=== PATIENT | male | born 1965 | race Caucasian/White ===

== ENCOUNTER 2019-09-22 18:28 | Inpatient (IN) | payer MEDICARE, OTHER ==
[~2019-09-22] VITALS: Ht 182.9 cm; Wt 98.9 kg
--- NOTE | 2019-09-22 18:28 | NUR ---
PT BIBPA C/O INCREASED AGITATION AND PSYCHOSIS. ON 5150 HOLD FOR DTO AND GD. PT IS AAOX4, NOT IN RESPIRATORY DISTRESS, V/S STABLE, KEPT RESTED AND COMFORTABLE. WILL CONTINUE TO MONITOR.
--- NOTE | 2019-09-22 18:39 | NUR ---
SEEN AND EXAMINED BY .
--- NOTE | 2019-09-22 18:50 | NUR ---
URINAL GIVEN BUT UNABLE TO PROVIDE URINE SPECIMEN THIS TIME.
--- NOTE | 2019-09-22 18:58 | NUR ---
ER PHLEB AT BEDSIDE FOR BLOOD DRAW.
[2019-09-22 19:06] LABS: BASOPHILS % (AUTO) 0.5 % (0.0-2.0); EOSINOPHILS % (AUTO) 5.2 % (0.0-6.0); HEMATOCRIT 45 % (39-51); HEMOGLOBIN 14.7 g/dL (13.5-17.5); LYMPHOCYTES # (AUTO) 1.3 /CMM (0.8-4.8); LYMPHOCYTES % (AUTO) 17.9 % (20.0-44.0); MEAN CORPUSCULAR HGB CONC 33 g/dl (31.0-36.0); MEAN CORPUSCULAR VOLUME 91 fL (80-96); MONOCYTES # (AUTO) 0.7 /CMM (0.1-1.30); MONOCYTES % (AUTO) 8.8 % (2.0-12.0); NEUTROPHILS # (AUTO) 5.1 /CMM (1.8-8.9); NEUTROPHILS % (AUTO) 67.6 % (43.0-81.0); PLATELET COUNT (AUTO) 250 /CMM (150-450); RED BLOOD CELL COUNT(AUTO) 4.88 MIL/uL (4.5-6.0); WHITE BLOOD COUNT (AUTO) 7.5 K/uL (4.3-11.0)
[2019-09-22 19:13] LABS: CALCIUM, SERUM 8.4 mg/dL (8.5-10.1); CARBON DIOXIDE 31 mmol/L (21-32); CHLORIDE 105 mmol/L (98-107); GLUCOSE 79 mg/dL (74-106); POTASSIUM 3.7 mmol/L (3.5-5.1); SODIUM SERUM 143 mmol/L (136-145); UREA NITROGEN, BLOOD 19 mg/dL (7-18)
--- NOTE | 2019-09-22 19:17 | NUR ---
urine collected and sent to lab
[2019-09-22 19:19] LABS: ALANINE AMINOTRANSFERASE 18 U/L (12-78); ALBUMIN 3.3 g/dL (3.4-5.0); ALCOHOL, BLOOD < 3 mg/dL (0-0); ALKALINE PHOSPHATASE 66 U/L (46-116); ASPARTATE AMINOTRANSFERASE 17 U/L (15-37); BILIRUBIN,DIRECT 0.1 mg/dL (0.0-0.2); BILIRUBIN,TOTAL 0.5 mg/dL (0.2-1.0); TOTAL PROTEIN, SERUM 6.8 g/dL (6.4-8.2)
[2019-09-22 19:20] LABS: ACETAMINOPHEN < 2 ug/ml (10-30); SALICYLATE < 2.8 mg/dL (2.8-20.0)
[2019-09-22 20:45] LABS: APPEARANCE,URINE HAZY (CLEAR); BILIRUBIN,URINE SMALL (NEGATIVE); BLOOD, URINE Trace-intact Ery/uL (NEGATIVE); COLOR,URINE DARK YELLOW (YELLOW); KETONES,URINE Negative (NEGATIVE); LEUKOCYTE ESTERASE ,URINE Negative (NEGATIVE); NITRITE, URINE Negative (NEGATIVE); PROTEIN,URINE Trace mg/dl (NEGATIVE); UGLUCOSE Negative (NEGATIVE); UROBILINOGEN,URINE 0.2 EU/dL (0.2)
[2019-09-22 20:52] LABS: BACTERIA,URINE Few /HPF (None Seen); SQUAMOUS EPITHELIAL CELL,UR Few /HPF (None Seen); WBC,URINE 0-2 /HPF (0-3)
[2019-09-22 20:53] LABS: HYALINE CASTS, URINE Few /LPF (None Seen); MUCUS,URINE Many /LPF (None Seen)
--- NOTE | 2019-09-22 21:08 | NUR ---
SPOKE WITH NURSING SUP, PT IS GOING TO ROOM 220A.
--- NOTE | 2019-09-22 21:31 | NUR ---
report given to lito anderson for warren; pt will be transported to 2nd floor gps
--- NOTE | 2019-09-22 21:33 | NUR ---
per report, to take patient up last for gps admit
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
[2019-09-22 23:56] VITALS: BP 138/82
[2019-09-23] MEDS ORDERED: TEMAZEPAM 7.5 MG CAPSULE PO PRN
[2019-09-23] MEDS ORDERED: LORAZEPAM 0.5 MG TABLET PO PRN
[2019-09-23] MEDS ORDERED: ACETAMINOPHEN 325 MG TABLET PO PRN
[2019-09-23] MEDS ORDERED: BLOOD SUGAR DIAGNOSTIC 1 EACH STRIP IN ONE
[2019-09-23] MEDS ORDERED: MAGNESIUM HYDROXIDE 30 ML UDC PO PRN
[2019-09-23] MEDS ORDERED: MAG HYDROX/AL HYDROX/SIMETH 30 ML UDC PO PRN
[2019-09-23] MEDS ORDERED: OLAN10TA3 PO (01:37)
[2019-09-23 07:38] LABS: CREATININE 0.8 mg/dL (0.6-1.3)
[2019-09-23 07:56] LABS: CHOLESTEROL 164 mg/dL (<200); HDL CHOLESTEROL 37 mg/dL (40-60); LDL 97 mg/dL (0-99); TRIGLYCERIDES 181 mg/dL (30-150)
[2019-09-23 08:00] VITALS: BP 135/82
--- NOTE | 2019-09-23 13:12 | NUR ---
FAMILY CONTACT: SW contacted pts son Reji ([phone]) for collateral information, treatment and discharge planning. SW left a voicemail for callback.
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
[2019-09-23] MEDS ORDERED: OLANZAPINE 10 MG TABLET PO SCH (15:00)
[2019-09-23 16:00] VITALS: BP 132/72
[2019-09-23] MEDS: OLANZAPINE 10 MG TABLET PO SCH (17:20)
[2019-09-23 20:05] VITALS: BP 122/72
--- NOTE | 2019-09-24 06:56 | NUR ---
GPS RN CLOSING NOTES: PT IS SLEEPING ON BED, RESPIRATION EVEN AND UNLABORED WITH EQUAL RISE AND FALL OF THE CHEST. ALL CARE NEEDS, TREATMENT AND MEDICATIONS ADMINISTERED ANTICIPATED PER ORDER. NO BEHAVIORAL ISSUES THIS SHIFT. SAFETY PRECAUTION TAKEN. BED IN LOWEST LOCKED POSITION, SIDE RAILS UP X2, CALL LIGHT WITHIN REACH. WILL CONTINUE TO MONITOR [id number] AND Q1HR PER GPS PROTOCOL FOR SAFETY, MOOD AND BEHAVIOR AND ENDORSE TO AM SHIFT.
[2019-09-24 08:00] VITALS: BP 133/83
[2019-09-24] MEDS: OLANZAPINE 10 MG TABLET PO SCH ×2 (09:45→18:38)
--- NOTE | 2019-09-24 09:57 | NUR ---
INITIAL DISCHARGE PLAN: Pt does not have a place to live, pt needs placement. SW will help form a safe and proper discharge in collaboration with MD.
--- NOTE | 2019-09-24 09:59 | NUR ---
SUBSTANCE ABUSE INTERVENTION: SW provided substance abuse intervention to pt. Pt minimizes his methamphetamine use and refused treatment.
[2019-09-24 16:00] VITALS: BP 136/90
--- NOTE | 2019-09-24 18:00 | NUR ---
QUIET,ISOLATIVE,MED COMPLIANT.
[2019-09-24 19:52] VITALS: BP 129/81
[2019-09-25 08:00] VITALS: BP 110/68
[2019-09-25] MEDS: OLANZAPINE 10 MG TABLET PO SCH (08:29)
[2019-09-25 16:00] VITALS: BP 130/77
[2019-09-25] MEDS: OLANZAPINE 5 MG TABLET PO SCH (16:18)
[2019-09-25 19:31] VITALS: BP 130/86
[2019-09-26 08:00] VITALS: BP 130/91
[2019-09-26] MEDS: OLANZAPINE 5 MG TABLET PO SCH ×2 (08:46→16:32)
--- NOTE | 2019-09-26 09:00 | NUR ---
RN NOTE- PT WITHDRAWN SULLEN PARANOID MED COMPLIANT FOLLOWS DIRECTIONS PO INTAKE GOOD
[2019-09-26 16:00] VITALS: BP 113/74
[2019-09-26 19:55] VITALS: BP 121/74
[2019-09-26 20:19] VITALS: BP 121/74
--- NOTE | 2019-09-26 20:20 | NUR ---
GPS RN NOTE: ANXIETY PATIENT NOTED TO BE ANXIOUS & RESTLESS, REQUESTED TO TAKE MEDICINE FOR HIM TO RELAX. PRN ATIVAN 0.5 MG 1 TAB PO GIVEN. WILL CONTINUE TO MONITOR FOR EFFECTIVENESS.
--- NOTE | 2019-09-26 21:30 | NUR ---
GPS RN NOTE: REFUSED SKIN ASSESSMENT PATIENT REFUSED SKIN ASSESSMENT X 3 DESPITE OF RISKS & BENEFITS EXPLANATIONS.
[2019-09-26] MEDS: OLANZAPINE 10 MG TABLET PO SCH (21:49)
[2019-09-27 08:00] VITALS: BP 114/76
[2019-09-27] MEDS: OLANZAPINE 5 MG TABLET PO SCH (09:18)
[2019-09-27 16:00] VITALS: BP 119/77
--- NOTE | 2019-09-27 19:38 | NUR ---
GPS RN NOTES: INDIGESTION PY C/O PF INDIGESTION. PT REQUESTED MAALOX. OFFERED MAALOX PRN ORDERED. PT AGREED AND TOLERATED MEDICATION WELL. CONTINUE TO MONITOR.
[2019-09-27 20:00] VITALS: BP 120/86
[2019-09-27] MEDS: OLANZAPINE 10 MG TABLET PO SCH (21:25)
[2019-09-28 08:00] VITALS: BP 130/74
[2019-09-28] MEDS: OLANZAPINE 5 MG TABLET PO SCH (08:28)
[2019-09-28 16:00] VITALS: BP 133/81
[2019-09-28 20:08] VITALS: BP 114/72
[2019-09-28] MEDS: OLANZAPINE 10 MG TABLET PO SCH (22:42)
[2019-09-29 07:54] VITALS: BP 144/76
[2019-09-29] MEDS: OLANZAPINE 5 MG TABLET PO SCH (08:17)
[2019-09-29 16:00] VITALS: BP 128/88
[2019-09-29 20:15] VITALS: BP 137/88
[2019-09-29] MEDS: OLANZAPINE 10 MG TABLET PO SCH (22:13)
[2019-09-30 08:00] VITALS: BP 133/70
[2019-09-30] MEDS: OLANZAPINE 5 MG TABLET PO SCH (08:19)
--- NOTE | 2019-09-30 09:02 | NUR ---
SNF REFERRAL: RYANN faxed SNF referral to [facility] ([facility]) [address] [address] for review.
--- NOTE | 2019-09-30 14:47 | NUR ---
SNF CONTACT: SW received a call from [facility] Address: [address] [place] [phone] stating pt has been accepted to the facility.
[2019-09-30 16:00] VITALS: BP 115/85
[2019-09-30 19:52] VITALS: BP 116/70
[2019-09-30] MEDS: OLANZAPINE 10 MG TABLET PO SCH (21:04)
[2019-10-01 08:00] VITALS: BP 134/91
[2019-10-01] MEDS: OLANZAPINE 5 MG TABLET PO SCH (09:49)
[2019-10-01 16:00] VITALS: BP 132/72
--- NOTE | 2019-10-01 19:48 | NUR ---
GPS RN NOTE, RECEIVED PATIENT AWAKE AND IN BED, NO S/S OR COMPLAINTS OF PAIN AT THIS TIME. PATIENT IS DISPLAYING NO S/S OF APPARENT DISTRESS AT THIS TIME. PATIENT BREATHING IS UNLABORED WITH EQUAL RISE AND FALL OF THE CHEST. PATIENT IS ALERT AND ORIENTED X 2-3 ON ROOM AIR WITH A SPO2 97%. PATIENT IS K[place] SPEAKING BUT UNDERSTANDS SOME ARABIC. PATIENT IS COMPLIANT WITH MEDICATIONS, PARANOID, ANXIOUS AT TIMES, GUARDED, AND COOPERATIVE. PATIENT DENIES SUICIDAL AND HOMICIDAL IDEATIONS AT THIS TIME. PATIENT ASSISTED WITH TURNING AND REPOSITIONING Q2HR AND PRN FOR COMFORT AND CIRCULATION. PATIENT HAS NO NEEDS AT THIS TIME. PATIENT EDUCATED ON THE USE OF THE CALL OWEN. PATIENT BED SIDE RAILS UP X 2 FOR SAFETY. PATIENT BED IS LOCKED, LOW, WITH BED ALARM ON. WILL CONTINUE TO MONITOR THIS PATIENT Q15 MINUTES WITH THE HELP OF STAFF TO MAINTAIN SAFETY.
[2019-10-01 19:49] VITALS: BP 125/73
[2019-10-01] MEDS: OLANZAPINE 10 MG TABLET PO SCH (21:10)
[2019-10-02 08:00] VITALS: BP 114/71
[2019-10-02] MEDS: OLANZAPINE 5 MG TABLET PO SCH (08:36)
[2019-10-02 16:00] VITALS: BP 124/77
[2019-10-02 20:05] VITALS: BP 117/78
[2019-10-02] MEDS: OLANZAPINE 10 MG TABLET PO SCH (21:22)
[2019-10-03 08:00] VITALS: BP 130/85
[2019-10-03] MEDS: OLANZAPINE 5 MG TABLET PO SCH (09:15)
--- NOTE | 2019-10-03 14:30 | NUR ---
SNF REFERRAL: RYANN faxed SNF referral to [facility] Address: [address], [place] [address] for review.
--- NOTE | 2019-10-03 14:31 | NUR ---
SNF CONTACT: SW received a call from Dennis, blending coordinator at [facility] Address: [address] [place] [address] who stated pt has been accepted to the facility.
--- NOTE | 2019-10-03 14:40 | NUR ---
FAMILY CONTACT: RYANN contacted pts son Reji ([phone]) to inform him pt will be discharged tomorrow Sunday10/04/19 to [facility] Address: [address] [place] [address] son agreed with discharge plan.
--- NOTE | 2019-10-03 14:43 | NUR ---
DISCHARGE NOTE FOR SUNDAY: Pt will be discharged on Sunday10/04/19 at 1:30pm via [facility] to [facility] Address: [address], [place] [address] . Pts son Reji ([phone]) has been notified and agrees with discharge plan. Pts mood is anxious with euthymic affect. Pt denied visual/auditory hallucinations and denied suicidal/homicidal ideation. Pt will address his substance use with Psychiatrist: Dr. Farooq Address: [address] [place] [address] Phone: and Household Cook: Dr Arellano Address: [address] [address] [phone]. The multidisciplinary exit care form was done, printed, signed, and given to the patient.
--- NOTE | 2019-10-03 15:04 | NUR ---
INDIVIDUAL INTERVENTION: SW discussed pts discharge plan to a SNF tomorrow Sunday10/04/19. Pt was agreeable to discharge plan and stated he did not have money to pay for a place to live. SW reassured him that his insurance will cover SNF placement.
[2019-10-03 16:03] VITALS: BP 117/73
[2019-10-03 20:06] VITALS: BP 118/68
[2019-10-03] MEDS: OLANZAPINE 10 MG TABLET PO SCH (21:07)
[2019-10-04] MEDS: OLANZAPINE 5 MG TABLET PO SCH (07:34)
[2019-10-04 08:00] VITALS: BP 124/78
--- NOTE | 2019-10-04 08:54 | NUR ---
Dr. Farooq gave an order to D/C hold and D/C to [facility], to continue same meds including prn and to follow up with the psych and medical doctors. Called son Reji at [phone] and made of the discharge. Called the facility and spoke to the esthetician and manager medical spa of the day Anushka and confirmed that they are accepting the pt. today.
--- NOTE | 2019-10-04 14:15 | NUR ---
GPS/RN PT DISCHARGED TO [facility] AND LEFT VIA AMBULANCE. NO SI OR HI AT THE TIME OF DISCHARGE. EXIT CARE AND PRESCRIPTIONS GIVEN AND UNDERSTOOD. PROPERTY RETURNED. PT REFUSED PICTURES ON D/C AND TO SIGN EXIT CARE. REPORT WAS GIVEN TO FACILITY NURSE SCARLET LUNA AT [phone].
== END 2019-10-04 14:15 | DRG 885 ==
LOC: ER 18:41 → GPS 21:23 → MEDOV2 21:58 → GPS 21:59
PROVIDERS: ADMIT Psychiatry & Neurology Psychiatry
DX: F29 Unspecified psychosis not due to a substance or known physiological condition (principal); R45.851 Suicidal ideations; F15.20 Other stimulant dependence, uncomplicated; E88.09 Other disorders of plasma-protein metabolism, not elsewhere classified; Z73.6 Limitation of activities due to disability; F20.9 Schizophrenia, unspecified; F32.9 Major depressive disorder, single episode, unspecified; F41.9 Anxiety disorder, unspecified; Z59.0 Homelessness; F22 Delusional disorders
CPT/HCPCS: 36415; 80048-TC; 80061-TC; 80076-TC; 80305; 81000-TC; 82565-TC; 85025-TC; 87081-TC; G0480